=== PATIENT | female | born 1965 | race Caucasian/White ===

== ENCOUNTER 2019-03-07 23:48 | Emergency (ER) | payer OTHER ==
[~2019-03-07] VITALS: Ht 165.1 cm; Wt 90.7 kg
[2019-03-08 00:15] VITALS: BP 134/74
== END 2019-03-08 00:15 | disposition home or self-care (01) ==
LOC: ER 23:48
DX: M79.604 Pain in right leg (principal); M79.605 Pain in left leg; F17.210 Nicotine dependence, cigarettes, uncomplicated

== ENCOUNTER 2019-03-08 13:58 | Emergency (ER) | payer OTHER ==
[2019-03-08 13:58] VITALS: BP 126/57
== END 2019-03-08 14:37 | disposition home or self-care (01) ==
LOC: ER 13:58
DX: M79.604 Pain in right leg (principal); F17.210 Nicotine dependence, cigarettes, uncomplicated; Z59.0 Homelessness

== ENCOUNTER 2019-03-08 20:37 | Emergency (ER) | payer OTHER ==
[~2019-03-08] VITALS: Ht 165.1 cm; Wt 64.4 kg
[2019-03-08 20:38] VITALS: BP 127/76
== END 2019-03-08 21:15 | disposition home or self-care (01) ==
LOC: ER 20:37
DX: M54.5 Low back pain (principal); F17.210 Nicotine dependence, cigarettes, uncomplicated

== ENCOUNTER 2021-04-26 21:32 | Emergency (ER) | payer OTHER ==
--- NOTE | ~2021-04-26 | EMS ---
[address] [address] EMS Patient Care Report Name: OFELIA ECHEVARRIA Room #: REG LEXA Hanesn#: [id number] Admission: 04/26/21 Attend Phys: Discharge: Date of : 63 Report #: [id number] THIS REPORT FOR: //name// Report Transmitted: 04/27/2021 10:05 EMS Care Summary [place], [place]/[facility] Incident [id number] @ 04/26/2021 20:41 Incident Location [address] [place] [address] Patient OFELIA ECHEVARRIA Female, 56 Years 1965 Patient Address UNKNOWN Patient History None Reported, Patient Allergies No known allergies, Patient Medications None Reported, Chief Complaint Cold exposure Disposition Transported No Lights/[place] Dispatch Reason Heat/Cold Exposure Transported To [facility] Narrative [facility] arrived on scene to find the patient walking towards the ambulance. Patient said she was homeless and needed a place to get warm. Patient had gone into the restaurant to have them call 911. Patient denied fever, shortness of breath, or chest pain. Patient was moved to the cot and secured with seat belts. En route to the hospital no changes in the patient condition occurred. [facility] arrived on [address] [address] EMS Patient Care Report Name: OFELIA ECHEVARRIA Room #: REG LEXA Hansen#: [id number] Admission: 04/26/21 Attend Phys: Discharge: Date of : 63 Report #: [id number] scene of the hospital and patient care was transferred to the . Initial Vitals @21:13P: 89,R: 16,BP: 156/73,Pain: 0/10,GCS: 15,SpO2: 98,Revised Trauma: 12, @21:01P: 82,R: 16,BP: 163/63,Pain: 0/10,GCS: 15,SpO2: 98,Revised Trauma: 12, Assessments @20:57MENTAL:No Abnormalities,SKIN:No Abnormalities,HEENT:Head/Face: No Abnormalities,Eyes: No Abnormalities,Neck/Airway: No Abnormalities,LUNG SOUNDS:General: No Abnormalities,Left Upper: No Abnormalities,Right Upper: No Abnormalities,Left Lower: No Abnormalities,Right Lower: No Abnormalities,ABDOMEN:General: No Abnormalities,Left Upper: No Abnormalities,Right Upper: No Abnormalities,Left Lower: No Abnormalities,Right Lower: No Abnormalities,PELVIS//GI:No Abnormalities,EXTREMITIES:Left Arm: No Abnormalities,Right Arm: No Abnormalities,Left Leg: No Abnormalities,Right Leg: No Abnormalities,PULSE:NEURO:No Abnormalities,@21:15MENTAL:No Abnormalities,SKIN:No Abnormalities,HEENT:Head/Face: No Abnormalities,Eyes: No Abnormalities,Neck/Airway: No Abnormalities,LUNG SOUNDS:General: No Abnormalities,Left Upper: No Abnormalities,Right Upper: No Abnormalities,Left Lower: No Abnormalities,Right Lower: No Abnormalities,ABDOMEN:General: No Abnormalities,Left Upper: No Abnormalities,Right Upper: No Abnormalities,Left Lower: No Abnormalities,Right Lower: No Abnormalities,PELVIS//GI:No Abnormalities,EXTREMITIES:Left Arm: No Abnormalities,Right Arm: No Abnormalities,Left Leg: No Abnormalities,Right Leg: No Abnormalities,PULSE:NEURO:No Abnormalities, Impression Common Cold Procedures @20:57 ALS Assessment Response: UnchangedSucceeded Timeline 20:40,Call Received 20:40,Dispatch Notified 20:41,Dispatched 20:41,En Route 20:56,On Scene 20:57,At Patient 20:57,ALS Assessment,Response: UnchangedSucceeded, 21:01,BP: 163/63 M,PULSE: 82,RR: 16 R,SPO2: 98 Ox,ETCO2: ,BG: ,PAIN: 0,GCS: 15, 21:04,Depart Scene 21:13,BP: 156/73 M,PULSE: 89,RR: 16 R,SPO2: 98 Ox,ETCO2: ,BG: ,PAIN: 0,GCS: 15, 21:36,At Destination 21:41,Call Closed [address] [address] EMS Patient Care Report Name: OFELIA ECHEVARRIA KWESI Room #: REG LEXA Hansen#: [id number] Admission: 04/26/21 Attend Phys: Discharge: Date of : 63 Report #: [id number] Disclaimer [email or web address] Copyright 2020 [employer] This EMS Care Summary contains data elements from the applicable legal record (which may be displayed differently). It is designed to provide pertinent information for the following purposes: continuity of care, clinical quality, and state data reporting. The complete legal record is available to ED staff and administrators of the receiving hospital in [employer]'s Patient Tracker. All data is provided "as is."
== END 2021-04-27 01:21 | disposition left against medical advice (07) ==
LOC: ER 21:32
DX: J00 Acute nasopharyngitis [common cold] (principal); Z53.21 Procedure and treatment not carried out due to patient leaving prior to being seen by health care provider